=== PATIENT | male | born 1955 | race Caucasian/White ===

== ENCOUNTER 2017-05-17 13:56 | Emergency (ER) | payer BC, OTHER ==
[~2017-05-17] VITALS: Ht 175.3 cm; Wt 120.2 kg
--- NOTE | 2017-05-17 14:03 | EMERGENCY ROOM VISIT NOTE ---
History Report prepared by Roqueibsusan: Solomon Javier Under the Supervision of: Dr. Duy Lombardi M.D. First contact with patient: 14:05 Chief Complaint: FALL Stated Complaint: FALL/KNEE PAIN History of Present Illness The patient is a 62 year old male who presents to the Emergency Room with complaints of left knee pain status post mechanical fall while he was working on the ceiling of his kitchen. He stepped sideways off his kitchen island and fell on his left leg which crumpled underneath him and he bounced off the oven with his shoulders, back, and head. His endorses LOC and the patient reports he felt lightheaded. He eventually got up and the reports the patient was very pale and in sweats. He also reports a new black floater in his left eye. He endorses pain in his left knee rated as 3/10 without movement. He denies headache, nausea, and vomiting. Of note the patient has a history of arthritis and takes a baby Aspirin. He denies any family history of heart problems. Source of History: patient, spouse/significant other Onset: prior to arrival Position: head (loss of conscioussness), eye (left), leg, knee Quality: other (pain) Timing: constant Modifying Factors (Worsening): movement Modifying Factors (Relieving): rest Associated Symptoms: + LOC, No headache, No nausea, No vomiting Review of Systems See HPI for pertinent positives and negatives. A total of ten systems were reviewed and were otherwise negative. Social History Marital Status: Housing Status: lives with significant other Current/Historical Medications Scheduled Aspirin (Aspirin Ec), 81 MG PO DAILY Calcium Carbonate-Cholecalcife (Calcium Plus Vitamin D3), 2 CAP PO DAILY Fish Oil (Lajas-3), 1 CAP PO DAILY Multivitamin (Multivitamin), 1 TAB PO DAILY Scheduled PRN Oxycodone Hcl (Oxycodone Hcl), 1 CAP PO TID PRN for Pain Allergies Coded Allergies: Fexofenadine (Unverified Allergy, Severe, RASH, 05/17/17) Physical Exam Vital Signs Date Time Temp Pulse Resp B/P (MAP) Pulse Ox O2 Delivery O2 Flow Rate FiO2 05/17/17 22:00 88 16 115/72 98 05/17/17 21:34 77 16 119/72 98 05/17/17 20:18 79 16 110/63 98 Room Air 05/17/17 19:39 64 16 115/72 98 Room Air 05/17/17 18:04 82 05/17/17 17:59 68 16 134/76 95 Room Air 05/17/17 15:59 72 16 117/62 95 Room Air 05/17/17 14:37 80 19 120/66 97 Room Air 05/17/17 14:11 36.7 78 18 154/67 98 Room Air 05/17/17 14:02 85 Physical Exam GENERAL: Awake, alert, well-appearing, in no distress HENT: Normocephalic, atraumatic. Oropharynx unremarkable. EYES: Normal conjunctiva. Sclera non-icteric. NECK: Supple. No nuchal rigidity. FROM. No JVD. RESPIRATORY: Clear to auscultation. CARDIAC: Regular rate, normal rhythm. Extremities warm and well perfused. Pulses equal. ABDOMEN: Soft, non-distended. No tenderness to palpation. No rebound or guarding. No masses. RECTAL: Deferred. MUSCULOSKELETAL: Chest examination reveals no tenderness. The back is symmetrical on inspection without obvious abnormality. No midline tenderness; CTL spine with no step offs There is no CVA tenderness to palpation. No joint edema. Left medical knee tenderness. Posterior tenderness. Full ROM in tact but causes pain. Distal PMS intact. LOWER EXTREMITIES: Calves are equal size bilaterally and non-tender. No edema. No discoloration. NEURO: Normal sensorium. No sensory or motor deficits noted. SKIN: No rash or jaundice noted. Medical Decision & Procedures ER Provider Diagnostic Interpretation: Radiology results as stated below per my review and radiologist interpretation: L KNEE 3 VIEWS CLINICAL HISTORY: The pain status post trauma COMPARISON: None. DISCUSSION: There is a suprapatellar joint effusion. There are moderate osteoarthritic changes. There is chondrocalcinosis. There is a minimally depressed lateral tibial plateau fracture. IMPRESSION: 1. Minimally depressed lateral tibial plateau fracture 2. Moderate osteoarthritis 3. Joint effusion 4. Chondrocalcinosis Electronically signed by: Shaun Alcaraz M.D. 05/17/2017 3:36 PM L TIBIA/FIBULA 2 VIEWS ROUTINE CLINICAL HISTORY: pain trauma COMPARISON: None. DISCUSSION: Nondisplaced oblique fracture proximal fibula. Degenerative change of the remaining osseous structures. Moderate generalized soft tissue edema. Faint linear lucencies proximal tibia felt to be overlap artifact. Fracture lateral tibial plateau. There is no evidence for soft tissue swelling. IMPRESSION: 1. Fracture lateral tibial plateau. 2. Fracture proximal fibula. 3. Generalized soft tissue edema. The above report was generated using voice recognition software. It may contain grammatical, syntax or spelling errors. Electronically signed by: Toñito Perez M.D. 05/17/2017 3:[address] SCAN OF THE LEFT KNEE WITHOUT IV CONTRAST CLINICAL HISTORY: Left knee injury. Tibial plateau fracture. COMPARISON STUDY: Radiographs of the left knee as well as the left tibia and fibula dated 05/17/2017. TECHNIQUE: CT scan of the left knee is performed from the distal femur to the proximal tibia and fibula. Images are reviewed in the axial, sagittal, and coronal planes. IV contrast was not administered for this examination. 3-D reformats are created and assessed. A dose lowering technique was utilized adhering to the principles of ALARA. CT DOSE: 228.12 mGy.cm FINDINGS: The skeletal structures appear osteopenic. The distal femur and the patella are intact. There is a comminuted fracture of the fibular head with small distracted fragments. There is a comminuted tibial plateau fracture. There is nondistracted fracture involving the medial tibial plateau adjacent to the tibial spine. There is depression and extensive comminution of the lateral tibial plateau. Large fragments are distracted laterally by up to 1.2 cm. There is at least 7 mm of depression in the lateral tibial plateau. Numerous small distracted fragments are identified in the joint space. Fracture extends through the tibial spine. Fracture lucencies extend inferiorly into the metaphysis involving the anterior and lateral cortex. A calcified fabella is incidentally noted. There are large patellar enthesophytes. There is lipohemarthrosis. Soft tissue edema is present around the knee and in the upper calf. The quadriceps and patellar tendons are intact as imaged. There is mild generalized atrophy of the regional musculature. No intramuscular hematoma is seen. IMPRESSION: 1. There is a complex tibial plateau fracture as detailed above. There is depression of the lateral tibial plateau with large distracted fragments. 2. There is a comminuted fracture involving the fibular head with numerous distracted fragments. 3. There is lipohemarthrosis with small bone fragments present within the joint space. 4. The distal femur and the patella are intact. Dictated: 05/17/2017 5:05 PM Transcribed: 05/17/2017 6:17 PM LEAH_Ernesto Electronically signed by: Jose Arrieta M.D. 05/17/2017 6:24 PM Laboratory Results Test 05/17/17 20:11 Bedside Glucose 114 mg/dl (70-99) Laboratory results reviewed by me Medications Administered Medications (Trade) Dose Ordered Sig/Yfn Route Start Time Stop Time Status Last Admin Dose Admin Oxycodone/ Acetaminophen (Percocet 5-325mg Tab) 1 tab NOW ONCE PO 05/17/17 14:15 05/17/17 14:17 DC 05/17/17 14:44 1 TAB Oxycodone HCl (Roxicodone Immediate Rel 5MG Home Pack) 1 homepack UD ONCE PO 05/17/17 19:15 05/17/17 19:16 DC 05/17/17 19:15 1 HOMEPACK Oxycodone/ Acetaminophen (Percocet 5-325mg Tab) 2 tab NOW ONCE PO 05/17/17 20:00 05/17/17 20:01 DC 05/17/17 20:17 2 TAB Ondansetron HCl (Zofran Odt) 4 mg ONE ONCE PO 05/17/17 20:00 05/17/17 20:01 DC 05/17/17 20:16 4 MG Sodium Chloride 1,000 ml @ 999 mls/hr Q1H1M STAT IV 05/17/17 19:52 05/17/17 20:52 DC 05/17/17 20:17 999 MLS/HR Ondansetron HCl (ZOFRAN ODT 4MG Home Pack) 1 homepack UD ONCE PO 05/17/17 22:00 05/17/17 22:01 DC 05/17/17 22:00 1 HOMEPACK ED Course 1617: I updated the patient on with his radiology findings. 1725: I spoke with Dr. Darian Borrego and discussed the radiology findings with him. 1826: I spoke with a nurse about getting a walker for the patient. 1836: I spoke with the patient and updated him on his plan. 1854: I spoke with the patient about an ultrasound. 1900: I spoke to the patient about a slight vitreous hemorrhage that is consistent with history. The patient will follow up with ophthalmology. 1940: I spoke with the patient's because the patient had a vasovagal episode, felt nauseous, became diaphoretic when he went to the bathroom. Medical Decision I reviewed the patient's past medical history, medications, and the nursing notes as described above. The patient's presentation and history were concerning for fracture, dislocation , musculoskeletal strain, ligamentous injury, and soft tissue injury. The patient is a 62-year-old gentleman who presents emergency department after having a mechanical fall when he was on his kitchen island fixing the ceiling and stepped off falling onto his left leg subsequently having knee pain per history of present illness. Arrival the patient is uncomfortable but in no acute distress, AFVSS. He has mild medial left knee tenderness as well as posterior tenderness, range of motions intact although causes pain. Distal PMS intact. X-ray demonstrates a tibial plateau fracture with mild depression. Further clarified on CT shows the same tibial plateau fracture as well as a proximal femoral fracture. Case was discussed with Dr. Borrego, orthopedics, who agrees with plan for knee immobilization and not weightbearing and to follow -up in the office tomorrow. He was placed in an knee immobilizer and was in preparation for discharge however when he stood up to use the bathroom felt severe pain and had an apparent vasovagal episode where he felt lightheaded and nauseated. Patient given additional analgesia and IVF hydration with resolution of symptoms and able to tolerate ambulation with walker, NWB on LLE. Otherwise the patient did report a recurrence of left eye floaters which she has had in the past and is followed by ophthalmology. Bedside ultrasound of his left eye that did show subtle debris consistent with vitreous hemorrhage. Patient is neurologically intact and minor abrasion anterior to his left ear there is no significant head trauma that would warrant a CT scan at this time. Patient to f/ u with his opthalmologist. Findings and plan for follow-up reviewed with patient. Patient agreeable and d/c'd per discharge instructions. Consults Time Called: 172 Consulting Physician: Dr. Darian Borrego - orthopedic surgeon (U) Returned Call: [phone] I discussed the radiology findings and patient management plan. Impression Primary Impression: Tibial plateau fracture, left Additional Impressions: Fracture of fibula, proximal Vitreous hemorrhage of left eye Scribe Attestation The scribe's documentation has been prepared under my direction and personally reviewed by me in its entirety. I confirm that the note above accurately reflects all work, treatment, procedures, and medical decision making performed by me. Departure Information Dispostion Home / Self-Care Prescriptions Oxycodone Hcl (OXYCODONE HCL) 5 Mg Cap 1 CAP PO TID Y for Pain for 30 Days, #5 CAP Prov: Duy Lombardi M.D. 05/17/17 Referrals Toñito Natarajan M.D. (PCP) Darian Borrego D.O. Patient Instructions ED Fx Lower Ext, ED Immobilizer Knee, Flashes and Floaters, My [facility] Additional Instructions Please follow up with orthopedics, Dr. Borrego, tomorrow for re-evaluation and surgical planning. You should also follow up with your rn relief charge in the next 1-2 days for re- evaluation of your floaters, which are likely from your chronic vitreous hemorrhage. You have a tibial plateau and proximal fibular fracture. Otherwise, your exam and xrays did not show signs of an emergent condition at this time. Use knee immobilizer and do not bear weight on your left leg. Acetaminophen for pain as needed. Oxycodone from breakthrough pain as needed. Return to the emergency department for worsening symptoms as described in the accompanying instructions. Problem Qualifiers
[2017-05-17 14:11] VITALS: TEMP 36.7; Ht 175.3 cm; Wt 120.2 kg
[2017-05-17] MEDS ORDERED: OXYCODONE/ACETAMINOPHEN 5-325 TAB PO ONE ×2 (14:15→20:00)
[2017-05-17] MEDS ORDERED: OMEG10007 PO (15:15)
[2017-05-17] MEDS ORDERED: MULT-506 PO (15:15)
[2017-05-17] MEDS ORDERED: ASPI81TA28 PO (15:15)
[2017-05-17] MEDS ORDERED: CALCCAP15 PO (15:15)
--- NOTE | 2017-05-17 15:37 | DIAGNOSTIC IMAGING REPORT ---
L TIBIA/FIBULA 2 VIEWS ROUTINE CLINICAL HISTORY: pain trauma COMPARISON: None. DISCUSSION: Nondisplaced oblique fracture proximal fibula. Degenerative change of the remaining osseous structures. Moderate generalized soft tissue edema. Faint linear lucencies proximal tibia felt to be overlap artifact. Fracture lateral tibial plateau. There is no evidence for soft tissue swelling. IMPRESSION: 1. Fracture lateral tibial plateau. 2. Fracture proximal fibula. 3. Generalized soft tissue edema. The above report was generated using voice recognition software. It may contain grammatical, syntax or spelling errors. Electronically signed by: Toñito Perez M.D. 05/17/2017 3:35 PM Dictated Date/Time: 05/17/2017 3:34 PM
--- NOTE | 2017-05-17 15:37 | DIAGNOSTIC IMAGING REPORT ---
L KNEE 3 VIEWS CLINICAL HISTORY: The pain status post trauma COMPARISON: None. DISCUSSION: There is a suprapatellar joint effusion. There are moderate osteoarthritic changes. There is chondrocalcinosis. There is a minimally depressed lateral tibial plateau fracture. IMPRESSION: 1. Minimally depressed lateral tibial plateau fracture 2. Moderate osteoarthritis 3. Joint effusion 4. Chondrocalcinosis Electronically signed by: Shaun Alcaraz M.D. 05/17/2017 3:36 PM Dictated Date/Time: 05/17/2017 3:34 PM
--- NOTE | 2017-05-17 18:18 | DIAGNOSTIC IMAGING REPORT ---
CT SCAN OF THE LEFT KNEE WITHOUT IV CONTRAST CLINICAL HISTORY: Left knee injury. Tibial plateau fracture. COMPARISON STUDY: Radiographs of the left knee as well as the left tibia and fibula dated 05/17/2017. TECHNIQUE: CT scan of the left knee is performed from the distal femur to the proximal tibia and fibula. Images are reviewed in the axial, sagittal, and coronal planes. IV contrast was not administered for this examination. 3-D reformats are created and assessed. A dose lowering technique was utilized adhering to the principles of ALARA. CT DOSE: 228.12 mGy.cm FINDINGS: The skeletal structures appear osteopenic. The distal femur and the patella are intact. There is a comminuted fracture of the fibular head with small distracted fragments. There is a comminuted tibial plateau fracture. There is nondistracted fracture involving the medial tibial plateau adjacent to the tibial spine. There is depression and extensive comminution of the lateral tibial plateau. Large fragments are distracted laterally by up to 1.2 cm. There is at least 7 mm of depression in the lateral tibial plateau. Numerous small distracted fragments are identified in the joint space. Fracture extends through the tibial spine. Fracture lucencies extend inferiorly into the metaphysis involving the anterior and lateral cortex. A calcified fabella is incidentally noted. There are large patellar enthesophytes. There is lipohemarthrosis. Soft tissue edema is present around the knee and in the upper calf. The quadriceps and patellar tendons are intact as imaged. There is mild generalized atrophy of the regional musculature. No intramuscular hematoma is seen. IMPRESSION: 1. There is a complex tibial plateau fracture as detailed above. There is depression of the lateral tibial plateau with large distracted fragments. 2. There is a comminuted fracture involving the fibular head with numerous distracted fragments. 3. There is lipohemarthrosis with small bone fragments present within the joint space. 4. The distal femur and the patella are intact. Dictated: 05/17/2017 5:05 PM Transcribed: 05/17/2017 6:17 PM LEAH_Ernesto Electronically signed by: Jose Arrieta M.D. 05/17/2017 6:24 PM Dictated Date/Time: 05/17/2017 5:05 PM
[2017-05-17] MEDS ORDERED: OXYC1CAP5 PO (19:10)
[2017-05-17] MEDS ORDERED: OXYCODONE IR HOME PACK PO ONE ×2 (19:15→22:05)
[2017-05-17] MEDS ORDERED: SODIUM CHLORIDE 0.9% 1000ML 1,000 ML IV STA (19:52)
[2017-05-17] MEDS ORDERED: ONDANSETRON 4MG OD TAB PO ONE (20:00)
[2017-05-17 22:00] VITALS: BP 115/72; PULSE 88; O2SAT 98
[2017-05-17] MEDS ORDERED: ONDANSETRON HOME PACK 4MG OD TAB PO ONE (22:00)
== END 2017-05-17 22:00 | disposition home or self-care (01) ==
LOC: EDBD 13:56 → C.EDB 13:58
DX: S82.202A Unspecified fracture of shaft of left tibia, initial encounter for closed fracture (principal); S82.402A Unspecified fracture of shaft of left fibula, initial encounter for closed fracture; W17.89XA Other fall from one level to another, initial encounter; H43.12 Vitreous hemorrhage, left eye; Z79.82 Long term (current) use of aspirin; Z79.899 Other long term (current) drug therapy

== ENCOUNTER 2017-05-29 04:53 | Observation (INO) | payer OTHER ==
[2017-05-26 08:27] VITALS: BMI 37.0
--- NOTE | 2017-05-26 09:00 | PAT Medication Instructions ---
Service Date May 26, 2017. Current Home Medication List Aspirin (Aspirin Ec), 81 MG PO QAM Calcium (Calcium), 1 TAB PO QAM Fish Oil (Azalea-3), 1 CAP PO QAM Multivitamin (Multivitamin), 1 TAB PO QAM Oxycodone Ir (Roxicodone Ir), 1-2 TAB PO Q4H PRN for Severe Pain Medication Instructions For Your Scheduled Surgery - Hold the following medications starting 05/27/17: Fish Oil (Azalea-3), 1 CAP PO QAM - Hold the following medications the morning of surgery: Calcium (Calcium), 1 TAB PO QAM Multivitamin (Multivitamin), 1 TAB PO QAM - Take the following medications the morning of surgery with a sip of water: Oxycodone Ir (Roxicodone Ir), 1-2 TAB PO Q4H PRN for Severe Pain (okay to take up to 4 hours prior to surgery if needed) Aspirin (Aspirin Ec), 81 MG PO QAM (okay per surgeon) - Take the following medications as scheduled the night before surgery: Oxycodone Ir (Roxicodone Ir), 1-2 TAB PO Q4H PRN for Severe Pain (if needed) If you have any questions please call us at [phone] or [phone] or [phone]
[2017-05-26 10:02] LABS: BASO % 0.1 %; BASO ABS # 0.01 K/uL (0-0.2); HEMATOCRIT 39.3 % (42-52); HEMOGLOBIN 13.9 g/dL (14.0-18.0); IG# 0.04 K/uL (0.00-0.02); LYMPH % 11.9 %; LYMPH ABS # 1.66 K/uL (1.2-3.4); MEAN CELL VOLUME 93.3 fL (80-100); MEAN CORPUSCULAR HGB CONC 35.4 g/dl (32-36); MEAN PLATELET VOLUME 9.9 fL (7.4-10.4); MONO % 8.2 %; MONO ABS # 1.15 K/uL (0.11-0.59); NEUT % 79.5 %; NEUT ABS # 11.13 K/uL (1.4-6.5); PLATELET COUNT 314 K/uL (130-400); RED CELL DISTRIBUTION WIDTH CV 12.7 % (11.5-14.5); RED CELL DISTRIBUTION WIDTH SD 43.3 fL (36.4-46.3); WHITE BLOOD COUNT 13.99 K/uL (4.8-10.8)
[2017-05-26 10:11] LABS: PTT PATIENT 23.1 SECONDS (21.0-31.0)
[2017-05-26 10:17] LABS: ALBUMIN 3.4 gm/dl (3.4-5.0); CALCIUM 9.3 mg/dl (8.5-10.1); CREATININE 0.89 mg/dl (0.60-1.40); POTASSIUM 4.2 mmol/L (3.5-5.1)
--- NOTE | 2017-05-26 10:17 | DIAGNOSTIC IMAGING REPORT ---
CHEST 2 VIEWS ROUTINE CLINICAL HISTORY: PAT preoperative evaluation COMPARISON STUDY: No previous studies for comparison. FINDINGS: The bones soft tissues and hemidiaphragms are normal. The cardiomediastinal silhouette is normal. The lungs are clear. The pulmonary vasculature is normal. IMPRESSION: Negative chest. The above report was generated using voice recognition software. It may contain grammatical, syntax or spelling errors. Electronically signed by: Toñito Perez M.D. 05/26/2017 10:16 AM Dictated Date/Time: 05/26/2017 10:15 AM
[2017-05-26 10:25] LABS: HEMOGLOBIN A1C 5.4 % (4.5-5.6)
[2017-05-29] VITALS (8 sets, daily range): BP systolic 128–154; BP diastolic 73–90; PULSE 78–101; TEMP 36.4–37.3; O2SAT 92–99; Ht 175.3 cm; Wt 37.5 kg
[~2017-05-29] VITALS: Ht 175.3 cm; Wt 37.5 kg
[~2017-05-29 04:53] MED LIST: ASPI81TA28 PO; CALC500T83 PO; MULT-506 PO; OMEG10007 PO; OXYC1TAB3 PO
[2017-05-29] MEDS ORDERED: CEFAZOLIN 2000MG IV PUSH 10 ML IV SCH (06:00)
[2017-05-29] MEDS ORDERED: LACTATED RINGER'S 1000ML 1,000 ML IV SCH (06:00)
[2017-05-29] MEDS ORDERED: BUPIVACAINE 0.5 % 5 MG/1 ML PF 10ML VIAL ONE (06:35)
[2017-05-29] MEDS ORDERED: FENTANYL CITRATE INJ 50 MCG/1 ML 2 ML VIAL ONE ×3 (06:43→09:39)
[2017-05-29] MEDS ORDERED: PROPOFOL IV EMULSION 10 MG/ML 20 ML VIAL IV ONE (06:43)
[2017-05-29] MEDS ORDERED: ONDANSETRON INJ 2 MG/ML 2 ML VIAL ONE (06:43)
[2017-05-29] MEDS ORDERED: MIDAZOLAM HCL 1 MG/ML 2ML VIAL ONE (06:43)
[2017-05-29] MEDS ORDERED: LIDOCAINE HCL 2% 2 ML VIAL (20MG/ML) ONE (06:43)
[2017-05-29] MEDS ORDERED: ATROPINE SULFATE 0.1 MG/ML 5ML SYR IV PRN (06:45)
[2017-05-29] MEDS ORDERED: ONDANSETRON INJ 2 MG/ML 2 ML VIAL IV PRN ×2 (06:45→09:45)
[2017-05-29] MEDS ORDERED: HYDROmorphone INJ 1 MG/ML SYR IV PRN (06:45)
[2017-05-29] MEDS ORDERED: EpHEDrine SULFATE INJ 50 MG/ML AMP IV PRN (06:45)
--- NOTE | 2017-05-29 06:54 | History & Physical Bridge Note ---
H&P Re-Evaluation Bridge Note: I have examined the patient, reviewed the History & Physical and in the interval since the performance of the History & Physical I have noted the following changes of clinical significance: No changes noted
[2017-05-29] MEDS ORDERED: HYDROmorphone INJ 2 MG/ML SYR/VIAL ONE (07:28)
[2017-05-29] MEDS ORDERED: BUPIVACAINE 0.5 % 5 MG/1 ML MPF 30ML VIAL ONE (07:35)
[2017-05-29] MEDS ORDERED: BACITRACIN 50000 UNIT VIAL ONE (07:36)
[2017-05-29] MEDS ORDERED: ROCURONIUM BROMIDE 10 MG/ML 5 ML VIAL IV ONE (07:41)
--- NOTE | 2017-05-29 09:36 | [facility] Post Operative Brief Note ---
Immediate Operative Summary Operative Date May 29, 2017. Pre-Operative Diagnosis Left Tibial Plateau Fracture Post-Operative Diagnosis Left Tibial Plateau Fracture Procedure(s) Performed Left Tibia: Open Reduction Internal Fixation Tibial Plateau with Bone Graft Surgeon Dr. Boucher Community Engagement Specialist Surgeon(s) RISHABH Blake Estimated Blood Loss 25 ml Findings see dictated op note Specimens none per surgeon Drains hmv x 1 Complication(s) None Disposition Recovery Room / PACU
[2017-05-29] MEDS ORDERED: CEFAZOLIN IV 2,000 MG in DEXTROSE 5% 50ML 50 ML IV SCH (09:45)
[2017-05-29] MEDS ORDERED: MoRPHine SULFATE 4 MG/ML 1 ML CARP\\VIAL IV PRN (09:45)
[2017-05-29] MEDS: FENTANYL CITRATE INJ 50 MCG/1 ML 2 ML VIAL IV PRN ×2 (09:53→09:59)
[2017-05-29] MEDS ORDERED: IV FLUIDS COMPLETED PRN (10:00)
--- NOTE | 2017-05-29 10:26 | Anesthesiology Progress Note ---
Anesthesia Post Op Note Date & Time May 29, 2017 at 10:25 Vital Signs Pain Intensity: 2 Vital Signs Past 12 Hours Date Time Temp Pulse Resp B/P (MAP) Pulse Ox O2 Delivery O2 Flow Rate FiO2 05/29/17 10:15 96 13 134/85 92 Nasal Cannula 3 05/29/17 10:05 93 16 158/83 95 Oxymask 10 05/29/17 09:55 98 16 127/84 99 Oxymask 10 05/29/17 09:45 37.1 97 16 147/79 94 Oxymask 10 05/29/17 05:33 36.7 78 20 133/74 96 Room Air Notes Mental Status: alert / awake / arousable, participated in evaluation Pt Amnestic to Procedure: Yes Nausea / Vomiting: adequately controlled Pain: adequately controlled Airway Patency, RR, SpO2: stable & adequate BP & HR: stable & adequate Hydration State: stable & adequate Anesthetic Complications: no major complications apparent
--- NOTE | 2017-05-29 10:37 | DIAGNOSTIC IMAGING REPORT ---
L KNEE 1 OR 2 VIEWS CLINICAL HISTORY: LEFT TIBIAL PLATEAU FX ORIF COMPARISON STUDY: Left knee 05/17/2017. FINDINGS: Total fluoroscopy time was 1 minute and 34 seconds. 2 fluoroscopic spot images of the left knee. There is a lateral cortical plate transfixed with screws and hardware appears intact. There is improved anatomic alignment. There is also evidence for a slightly displaced fracture at the fibular neck. IMPRESSION: Fluoroscopy provided for internal fixation of the lateral tibial plateau fracture Electronically signed by: Max Mary M.D. 05/29/2017 10:35 AM Dictated Date/Time: 05/29/2017 10:33 AM
--- NOTE | 2017-05-29 11:00 | Progress Note ---
Progress Note Date of Service May 29, 2017. Progress Note Postoperative progress note Patient seen in PACU, comfortable, still waking up from general anesthesia, denies pain. Physical exam: Left lower extremity: Neurovascular sensory intact, positive EHL/FHL, +2 dorsalis pedis pulse, dressings clean dry and intact, and knee immobilizer placed, compartments soft nontender. Drain intact. Assessment plan Status post ORIF left tibial plateau with bone graft. -NWB LLE -Maintain KI -PT/OT -Pain control -IV abx x 24 -DVT ppx -DC Drain POD1 -DC planing, home POD1
--- NOTE | 2017-05-29 11:02 | DIAGNOSTIC IMAGING REPORT ---
L KNEE 1 OR 2 VIEWS ROUTINE CLINICAL HISTORY: Postop examination. Tibial plateau fracture. COMPARISON: 05/17/2017 DISCUSSION: There is an internally fixated fracture of the lateral tibial plateau. There is a lateral metallic plate with multiple transverse and oblique screws. Also evident is a proximal fibular fracture. Overlying skin claudia and surgical drains are evident. IMPRESSION: 1. Internally fixated lateral tibial plateau fracture. Fibular head/neck fracture. Electronically signed by: Shaun Alcaraz M.D. 05/29/2017 11:01 AM Dictated Date/Time: 05/29/2017 10:59 AM
[2017-05-29] MEDS: OXYCODONE HCL IR 5 MG TAB (IMMEDIATE RELEASE) PO PRN ×3 (11:37→19:12)
[2017-05-29] MEDS: POTASSIUM CHLORIDE INJ 10 MEQ in SODIUM CHLORIDE 0.9% 1000ML 1,000 ML IV SCH ×2 (11:45→21:20)
[2017-05-29] MEDS: ACETAMINOPHEN 500 MG TAB PO SCH ×2 (13:54→21:20)
[2017-05-29] MEDS: CEFAZOLIN IV 2,000 MG in SYRINGE 0 ML IV SCH ×2 (16:13→23:52)
[2017-05-29] MEDS ORDERED: SENNA 8.6 MG TAB PO SCH (21:00)
[2017-05-29] MEDS: DOCUSATE SODIUM 100 MG CAP PO SCH (21:20)
[2017-05-29] MEDS: ASPIRIN 325 MG ECTAB PO SCH (21:20)
[2017-05-30] MEDS: OXYCODONE HCL IR 5 MG TAB (IMMEDIATE RELEASE) PO PRN ×4 (00:02→14:05)
[2017-05-30 03:37] VITALS: BP 130/73; PULSE 95; TEMP 37.3; O2SAT 92
[2017-05-30] MEDS: ACETAMINOPHEN 500 MG TAB PO SCH ×2 (05:41→14:04)
[2017-05-30 07:14] VITALS: BP 157/85; PULSE 90; TEMP 37.1; O2SAT 94
[2017-05-30 07:16] LABS: HEMATOCRIT 36.3 % (42-52); HEMOGLOBIN 12.4 g/dL (14.0-18.0); MEAN CELL VOLUME 95.3 fL (80-100); MEAN CORPUSCULAR HEMOGLOBIN 32.5 pg (25-34); MEAN CORPUSCULAR HGB CONC 34.2 g/dl (32-36); PLATELET COUNT 245 K/uL (130-400); RED CELL DISTRIBUTION WIDTH SD 44.5 fL (36.4-46.3); WHITE BLOOD COUNT 12.44 K/uL (4.8-10.8)
--- NOTE | 2017-05-30 07:37 | Anesthesiology Progress Note ---
Anesthesia Post Op Note Date & Time May 30, 2017 at 07:37 Vital Signs Pain Intensity: 7.0 Vital Signs Past 12 Hours Date Time Temp Pulse Resp B/P (MAP) Pulse Ox O2 Delivery O2 Flow Rate FiO2 05/30/17 07:14 37.1 90 18 157/85 (109) 94 Room Air 05/30/17 03:37 37.3 95 16 130/73 (92) 92 Room Air 05/29/17 22:51 37.3 100 18 135/74 (94) 92 Room Air Notes Mental Status: alert / awake / arousable, participated in evaluation Pt Amnestic to Procedure: Yes Nausea / Vomiting: adequately controlled Pain: adequately controlled Airway Patency, RR, SpO2: stable & adequate BP & HR: stable & adequate Hydration State: stable & adequate Anesthetic Complications: no major complications apparent
[2017-05-30 07:50] LABS: CALCIUM 8.3 mg/dl (8.5-10.1); CREATININE 0.77 mg/dl (0.60-1.40); POTASSIUM 4.3 mmol/L (3.5-5.1)
[2017-05-30] MEDS: POTASSIUM CHLORIDE INJ 10 MEQ in SODIUM CHLORIDE 0.9% 1000ML 1,000 ML IV SCH (08:08)
[2017-05-30] MEDS: ASPIRIN 325 MG ECTAB PO SCH (08:08)
[2017-05-30] MEDS: DOCUSATE SODIUM 100 MG CAP PO SCH (08:09)
[2017-05-30] MEDS ORDERED: MULTIVITAMIN TAB PO SCH (09:00)
[2017-05-30] MEDS ORDERED: PANTOprazole SOD 40 MG TAB PO SCH (09:00)
--- NOTE | 2017-05-30 09:09 | Orthopedic Progress Note ---
Orthopedic Progress Note Date of Service May 30, 2017. Subjective Post OP Day: 1 Reports: feeling well, Denies: complaints, chest pain, SOB, nausea / vomiting, light headedness Additional Notes: Patient seen resting in bed, comfortable. C/O pain overnight, controlled with medications, no acute issues, denies SOB, CP, F/C/N/V. Objective LLE NVSI +EHL/FHL/TA/GS SILT grossly, CR< 2 seconds, +2 DP pulse, CR< 2 seconds , Dressing CDI, compartments soft NT, drain intact. Date Time Temp Pulse Resp B/P (MAP) Pulse Ox O2 Delivery O2 Flow Rate FiO2 05/30/17 07:14 37.1 90 18 157/85 (109) 94 Room Air 05/30/17 07:00 Room Air 05/30/17 03:37 37.3 95 16 130/73 (92) 92 Room Air 05/29/17 22:51 37.3 100 18 135/74 (94) 92 Room Air 05/29/17 19:10 Room Air 05/29/17 18:44 37.1 101 18 128/73 (91) 93 Room Air 05/29/17 15:54 Room Air 05/29/17 15:28 36.7 89 18 149/80 (103) 99 Nasal Cannula 3.0 05/29/17 14:13 36.6 89 18 136/77 (96) 98 Nasal Cannula 4.0 05/29/17 12:53 89 16 154/79 (104) 98 Nasal Cannula 2.0 05/29/17 11:25 84 16 154/79 (104) 95 Nasal Cannula 2.0 05/29/17 10:50 36.4 90 16 150/90 (110) 96 Nasal Cannula 3.0 05/29/17 10:50 96 Nasal Cannula 3.0 05/29/17 10:50 96 Nasal Cannula 3.0 05/29/17 10:25 36.3 98 12 141/70 95 Nasal Cannula 3 05/29/17 10:15 96 13 134/85 92 Nasal Cannula 3 05/29/17 10:05 93 16 158/83 95 Oxymask 10 05/29/17 09:55 98 16 127/84 99 Oxymask 10 05/29/17 09:45 37.1 97 16 147/79 94 Oxymask 10 Laboratory Results 24 Hours: Test 05/30/17 07:04 Hematocrit 36.3 % Hemoglobin 12.4 g/dL Prothromb Time International Ratio 1.0 Prothrombin Time 10.7 SECONDS Assessment & Plan Assessment: POD #1 ORIF Left Tibial plateau -NWB LLE -PT/OT -Maintain KI -Maintain Dressing -DC Drain today -Pain controlled -DVT PPX ASA -DC planing - home today
[2017-05-30] MEDS ORDERED: RXC5 PO (09:15)
[2017-05-30] MEDS ORDERED: ASPEC325 PO (09:15)
[2017-05-30] MEDS ORDERED: SENN-61 PO (09:15)
--- NOTE | 2017-05-30 09:24 | Discharge Instructions ---
Discharge Instructions Date of Service May 30, 2017. Admission Reason for Admission: Left Tibial Plateau Fracture Discharge Discharge Diagnosis / Problem: Left Tibial Plateau Fracture Discharge Goals Goal(s): Decrease discomfort, Improve function, Increase independence Activity Recommendations Activity Limitations: per Instructions/Follow-up section Lifting Limitations: none (Left lower extremity) Exercise/Sports Limitations: until after follow-up appointment May Resume Sexual Activity: after follow-up appointment Shower/Bathe: keep incision dry Weightbearing Status: Left non-weightbearing . Instructions / Follow-Up Instructions / Follow-Up ACTIVITY RECOMMENDATIONS: SELF CARE INSTRUCTIONS AFTER ORIF Left Tibial Plateau A. You may need to continue a physical therapy program after discharge from the hospital, you will receive a prescription at your follow up appointment to begin gentle range of motion exercises. B. You may ambulate only with the aid of a walker or crutches. C. Be up as much as comfortable with rest periods throughout the day. Rest with leg elevation is very important. Use the ice wrap frequently for the first 3-4 weeks. D. There are no restrictions on activities. You may ride in a car, shop, participate in vice president global advertising sales and all social activities as long as you take frequent breaks and ice/elevate your leg and maintain strict non weight bearing on your left lower leg. E. Wear the long elastic stockings (KEHINDE hose) 20 hours a day for 2 weeks after surgery. F. Keep dressing clean and dry at all times SPECIAL CARE INSTRUCTIONS: VERY IMPORTANT TO READ AND REVIEW A. There are a few signs you need to watch for after you are home. Call [facility] if you notice any of the followin. Increased severe knee or calf pain. Some pain is expected after surgery. 2. Increased swelling in your leg or knee; pain or swelling of the calf muscle in either lower leg. 3. Any fluid drainage from the incision. 4. Shortness of breath or chest pain. B. Please call [facility] at if you have any concerns or questions about your operation or recovery. The doctor or his nurse will return your call promptly. IMPORTANT: * REMEMBER TO TAKE ASPIRIN, 325 MG, TWICE DAILY FOR 4 WEEKS UNLESS OTHERWISE DIRECTED. THIS IS YOUR BLOOD THINNER. * HIGH RISK PATIENTS MAY BE PRESCRIBED A STRONGER BLOOD THINNER. THIS WILL BE PROVIDED AT DISCHARGE. * CALL IF INCREASED PAIN, REDNESS, DRAINAGE OR FEVER GREATER THAT 101. * WEAR KEHINDE HOSE 20 HOURS PER DAY FOR 2 WEEKS. * DO NOT REMOVE DRESSING, THIS WILL BE DONE AT YOUR FIRST FOLLOW UP APPOINTMENT. FOLLOW UP VISIT: If appointment is not already scheduled: Please call [facility] to make a follow-up appointment for 10-14 DAYS after your surgery at . Current Hospital Diet Patient's current hospital diet: Regular Diet Discharge Diet Recommended Diet: Regular Diet Procedures Procedures Performed: Left Tibia: Open Reduction Internal Fixation Tibial Plateau with Bone Graft Pending Studies Studies pending at discharge: no Laboratory Results Hemoglobin A1c Test 05/26/17 09:07 Range/Units Estimated Average Glucose 108 mg/dl Hemoglobin A1c 5.4 4.5-5.6 % Medical Emergencies . Who to Call and When: Medical Emergencies: If at any time you feel your situation is an emergency, please call 911 immediately. . Non-Emergent Contact Non-Emergency issues call your: Primary Care Provider Call Non-Emergent contact if: you have a fever, temperature is above 100.5, temperature is above 101, temperature is above 101.5, your pain is not controlled, your pain is worsening, your pain is unusual for you, your pain is concerning you, wound has increased drainage, wound has increased redness, wound has increased pain, you have any medication questions Past History Medical & Surgical History: (1) Tibial plateau fracture, left . "Provider Documentation" section prepared by Mk Boucher. . VTE Core Measure Inpt VTE Proph given/why not?: Other Anticoagulation, T.E.D. Stock[employer] [place] Drug Monitoring Program Search Results: patient reviewed within database, no issues identified
[2017-05-30 11:03] VITALS: BP 157/85; PULSE 90; TEMP 37.1; O2SAT 94
[2017-05-30 11:42] VITALS: BP 157/81; PULSE 88; TEMP 37.1; O2SAT 93
--- NOTE | 2017-05-30 22:00 | [facility] Operative Report ---
Operative Report Operative Date May 30, 2017. Pre-Operative Diagnosis Left Tibial Plateau Fracture Post-Operative Diagnosis Left Tibial Plateau Fracture Procedure(s) Performed Left Tibia: Open Reduction Internal Fixation Tibial Plateau with Bone Graft Surgeon Dr. Boucher Expander Surgeon(s) RISHABH Blake Estimated Blood Loss 25 ml Findings TT 114 mm Fluids 1200 Specimens none per surgeon Drains hmv x 1 Anesthesia General Complication(s) None Disposition Recovery Room / PACU Indications 62 yo Male who presents after fall from 3 feet onto his left leg and subsequently sustaining a lateral split depressed fracture of his left tibia plateau. He was seen in the office on 05/18/17 however due to lower extremity swelling, surgery was delayed and the patient was re-evaluated on 05/25/17 and was noted to have positive wrinkle sign. At this time the decision was made to proceed with open reduction, internal fixation. The risk and benefits of surgery were explained to the patient which include but not limited to infection , bleeding, blood clots, injury to bone, vessels, nerves, soft tissue, malunion , nonunion, collapse of articular surface, failure of hardware, residual pain, cardio/pulmonary events, . The patient agreed with the plan and informed consent was given at this time. Description of Procedure Implants: 6 hole Left 3.5 Locking Proximal Lateral Tibia Plate 65mm 3.5mm Locking screw x 3 70mm 3.5mm Locking screw x 2 80mm 3.5mm Locking screw x 1 85mm 3.5mm Locking screw x 1 36mm 3.5mm cortex screw x 2 40mm 3.5mm cortex screw x 1 The patient was brought to the OR and transferred to the OR table in the supine position. After general anesthesia was induced a non-sterile tourniquet and padding was placed on the proximal thigh. The left lower extremity was prepped and draped in usual sterile fashion. Time out and site identification was performed and the leg was wrapped with esmarch bandage and the tourniquet was inflated to 300 mmHg. Next, a standard curvilinear anterolateral approach to the lateral tibial plateau was performed through skin and subcutaneous tissue and carried down to IT band. Adequate hemostasis was performed with electrocautery. A longitudinal split was made in the IT band inline with the incision. A submeniscal arthrotomy was performed. Vicryl tagging suture was placed into the meniscus elevating the meniscus allowing visualization of the joint surface. A depressed comminuted posterolateral piece of the articular surface was encountered. Next, the fracture was opened up, wedged like a book using a Altman elevator. Next, using a combination of elevators and bone tamps, the depressed articular segment was elevated to line it up with the remaining articular surface. This was done from below under direct visualization and C-arm fluoroscopy. Once the articular surface was disimpacted and elevated to its anatomic position, 15 mL of allograft bone chips and 5ML DBX were impacted into the defect left underneath. Next, while utilizing C-arm fluoroscopy, K-wires were placed to provisionally hold the reduction of the articular surface. A 6 hole Synthes 3.5 proximal tibial nonlocking plate was fashioned to the lateral aspect of the tibial plateau, held in place with two K-wires. One cortical screw was placed distal to aid in reduction of the plate to the bone and four proximal locking screws were placed proximally. Next angled locking screw holes were filled with locking screws and the remaining 2 cortical screws were placed in the the distal plate. All screws were placed in standard AO fashion. Next, K-wires that were initially placed were removed. C-arm fluoroscopy was used to confirm excellent position of the articular surface on both the AP and lateral fluoroscopic images, as well as positioning of all screws and hardware. Next, the wound was thoroughly irrigated with sterile saline with bacitracin. The submeniscal arthrotomy was closed using Vicryl tagging suture and tied down to the plate proximally. The IT band was closed with 0 Vicryl suture in figure- of-eight fashion followed by subcutaneous layer of 2-0 Vicryl sutures and claudia for the skin. Prior to closure the incision was injected liberally with 30cc of .5% Marcaine. Sterile dressings were applied. The patient was placed into a knee immobilizer. Prior to closure, the tourniquet was deflated and hemostasis was obtained. There were no complications. Due to the complex nature of the procedure, the entire surgery was performed with the operational assistance of Liban Castellanos PA-C. The assistant superintendent for curriculum, under direct supervision, was involved in the actual performance of all aspects of the surgical procedure including hemostasis, tissue retraction and incision, instrument management, patient positioning, and wound closure. I attest to the content of the Intraoperative Record and any orders documented therein. Any exceptions are noted below. I attest to the content of the Intraoperative Record and any orders documented therein. Any exceptions are noted below.
--- NOTE | 2017-06-03 09:21 | Discharge Summary ---
Orthopedic Discharge Summary Admission Date/Reason May 29, 2017 at 05:31 Left Tibial Plateau Fracture. Discharge Date/Disposition May 30, 2017 Home Diagnosis Principal Diagnosis: Left lateral tibia plateau fracture Procedure(s) Performed Open reduction internal fixation left tibial plateau with allograft bone grafting Consultations Physical Therapy, Occupational Therapy, social welfare clerk/case management Medication Reconciliation New Medications: Aspirin (Aspirin) 325 Mg Ectab 325 MG PO BID for 28 Days Oxycodone HCl (Oxycodone HCl) 5 Mg Tab 5-10 MG PO Q4H PRN for Pain, #60 TAB Senna (Senokot) 8.6 Mg Tab 17.2 MG PO HS for 14 Days, TAB Continued Medications: Calcium (Calcium) 500 Mg Tab 1 TAB PO QAM Fish Oil (Kasbeer-3) 1 Ea Cap 1 CAP PO QAM, CAP Multivitamin (Multivitamin) Tab 1 TAB PO QAM, TAB Discontinued Medications: Aspirin (Aspirin Ec) 81 Mg Tab 81 MG PO QAM Oxycodone Ir (Roxicodone Ir) 5 Mg Tab 1-2 TAB PO Q4H PRN for Severe Pain, #12 TAB Admission Physical Exam As per Admitting History & Physical. Hospital Course 62 yo Male who presents after fall from 3 feet onto his left leg and subsequently sustaining a lateral split depressed fracture of his left tibia plateau. He was seen in the office on 05/18/17 however due to lower extremity swelling, surgery was delayed and the patient was re-evaluated on 05/25/17 and was noted to have positive wrinkle sign. At this time the decision was made to proceed with open reduction, internal fixation. The risk and benefits of surgery were explained to the patient which include but not limited to infection , bleeding, blood clots, injury to bone, vessels, nerves, soft tissue, malunion , nonunion, collapse of articular surface, failure of hardware, residual pain, cardio/pulmonary events, . The patient agreed with the plan and informed consent was given at this time. On 05/29/2017 patient was admitted to the hospital after undergoing left tibial plateau open reduction internal fixation with bone grafting. The patient tolerated procedure well was taken to PACU till PACU criteria met. The patient was then admitted to the general medical surgical floor for further inpatient observation, pain control and therapy. Perioperatively the patient received IV Ancef and it was continued for 24 hours postoperatively. The patient was also started on keratotic aspirin for DVT prophylaxis. Postoperative consultations were placed for physical therapy and occupational therapy. The patient did well overnight and his pain was well controlled on oral pain medication. On postoperative day #1 patient's hemoglobin was 12.4. The patient progressed well with physical therapy and occupational therapy and was deemed stable orthopedic surgery to be discharged home on 05/30/2017. Discharge Instructions Please refer to the electronic Patient Visit Report (Discharge Instructions) for additional information.
== END 2017-05-30 15:10 | disposition home or self-care (01) ==
LOC: C.ACU 04:53 → C.3E 05:31 → ENRESERV 10:06
PROVIDERS: ADMIT Orthopaedic Surgery; ATTEND Orthopaedic Surgery
DX: S82.142A Displaced bicondylar fracture of left tibia, initial encounter for closed fracture (principal); W17.89XA Other fall from one level to another, initial encounter; E66.9 Obesity, unspecified; M19.90 Unspecified osteoarthritis, unspecified site; H91.93 Unspecified hearing loss, bilateral; Z68.36 Body mass index [BMI] 36.0-36.9, adult; Z98.49 Cataract extraction status, unspecified eye; Z83.3 Family history of diabetes mellitus; Z82.49 Family history of ischemic heart disease and other diseases of the circulatory system; Z82.3 Family history of stroke; Z80.0 Family history of malignant neoplasm of digestive organs